=== PATIENT | female | born 1945 | race Caucasian/White ===

== ENCOUNTER 2018-09-06 05:50 | Day surgery (SDC) | payer OTHER ==
[2018-09-04 16:13] VITALS: BMI 24.7
[2018-09-06] VITALS (16 sets, daily range): BP systolic 96–142; BP diastolic 51–72; PULSE 74–80; RESP 13–21; Ht 144.8 cm; Wt 52.0 kg
[~2018-09-06] VITALS: Ht 144.8 cm; Wt 52.0 kg
[2018-09-06] MEDS ORDERED: CEFAZOLIN 1 GM/50 ML (PMX) 50 ML IVPB SCH (06:00)
[2018-09-06] MEDS ORDERED: SOD CHLORIDE 0.9% 1,000 ML IV SCH (06:00)
[2018-09-06] MEDS ORDERED: POLYMYXIN/BACITRACIN 1L IRRIG ONE (07:25)
--- NOTE | 2018-09-06 08:13 | PREAC ---
Date/Time of Note Date/Time of Note DATE: 09/06/18 TIME: 08:11 Anesthesia Eval and Record Evaluation Time Pre-Procedure Interview DATE: 09/06/18 TIME: 08:11 Age 73 Sex female NPO: 8 hrs Preoperative diagnosis hernia Planned procedure hernia repair Past Medical History Past Medical History: Includes Cardio: HTN, Dyslipidemia Surgery & Anesthesia Issues No known issue Meds Anticoagulation: No Beta Lisa within 24 hr: No Reason Beta Lisa not given: Pt. not on B-Lisa Current Medications Sodium Chloride 1,000 ml @ 75 mls/hr [id number] IV ; Start 09/06/18 at 06:00; Stop 09/06/18 at 16:00 Meds reviewed: Yes Allergies Coded Allergies: No Known Allergy (Unverified , 09/04/18) Allergies Reviewed: Yes Labs/Studies Labs Reviewed: Reviewed by anesthesiologist test: N/A Pre-procedure Exam Last vitals Vital Signs Date Temp Pulse Resp B/P (MAP) Pulse Ox O2 O2 Flow FiO2 Time Delivery Rate 09/06/18 97.9 16 142/72 98 Room Air 06:48 (95) Airway: Adequate mouth opening, Adequate thyromental dist Mallampati: Mallampati III Teeth: Normal Lung: Normal Heart: Normal ASA Physical Status ASA physical status: 2 Emergency: None Pre-operative Attestations Prior to commencing anesthesia and surgery, the patient was re-evaluated, there was verification of: *The patient's identity *The results of appropriate recent lab work and preoperative vital signs *The above evaluation not changing prior to induction *Anesthetic plan, risk benefits, alternative and complications discussed with patient/family; questions answered; patient/family understands, accepts and wishes to proceed. EDWIN THOMAS DO Sep 06, 2018 08:13
[2018-09-06] MEDS ORDERED: ETOMIDATE 20 MG INJ ONE (08:17)
[2018-09-06] MEDS ORDERED: LIDOCAINE 1% (MDV) 20 ML INJ ONE (08:17)
[2018-09-06] MEDS ORDERED: CEFAZOLIN 1 GM INJ ONE (08:29)
[2018-09-06] MEDS ORDERED: SEVOFLURANE 15 MIN ONE (08:30)
[2018-09-06] MEDS ORDERED: FENTAnyl 50 MCG/ML VIAL ONE (08:30)
[2018-09-06] MEDS ORDERED: ONDANSETRON 4 MG INJ IV PRN (08:30)
[2018-09-06] MEDS ORDERED: HYDROmorphONE 1 MG/5 ML IV SYRINGE IV PRN ×3 (08:30)
[2018-09-06] MEDS ORDERED: ONDANSETRON 4 MG INJ ONE (08:52)
[2018-09-06] MEDS ORDERED: ROPIVACAINE 0.2% 20 ML VIAL ONE (08:52)
[2018-09-06] MEDS ORDERED: hydrALAzine 20 MG INJ ONE (09:00)
[2018-09-06] MEDS ORDERED: EPHEDrine SULFATE 50 MG/5 ML SYG ONE (09:11)
--- NOTE | 2018-09-06 09:11 | OPR ---
Date/Time of Note Date/Time of Note DATE: 09/06/18 TIME: 09:06 Operative Report Procedure Date: Sep 06, 2018 Preoperative Diagnosis recurrent incarcerated right inguinal hernia Postoperative Diagnosis same Operation/Procedure Performed open right incarcerated recurrent inguinal hernia repair with mesh Surgeon see signature line Senior Lead Software Engineer none Anesthesia Type: general Estimated Blood Loss: 0 - 10 ml's Transfusion none Specimen none Grafts/Implants none Complications none Pt Condition Post Procedure: stable Indications This is a 73-year-old female with a recurrent incarcerated right inguinal hernia. She has pain and request surgical repair. Risks alternatives benefits and percent were discussed the patient. Potential complications including but not limited to bleeding infection recurrence of hernia mesh migration mesh infection pain and chronic pain were discussed the patient. Patient expressed understanding and consents to the operation. Procedure Description Patient is taken to the OR and prepped and draped in usual sterile fashion. Surgical time was performed. IV antibiotics were given. Oblique incision was made over the prior right inguinal hernia incision with a 10 blade. Dissection with cautery was carried onto the extremity fascia. Here already scar was encountered. At the medial aspect of the incision there was an incarcerated hernia. This fullness with the incarcerated hernia was carefully dissected and carefully lysed adhesions were performed until the base of the hernia and the fascial edges were identified. There was well incorporated old fascia that had migrated superiorly and laterally. The medial aspect was the only area that was identified with recurrent incarcerated inguinal hernia. Further dissection of the hernia contents was performed and manual reduction was possible. The hernia defect was identified and the fascial edges were freshened. The plug portion of the ultra pro hernia system mesh medium size was then secured in place with a running 0 Prolene from the pubic tubercle along the shelving is unlimited. Superiorly the plug was then affixed to what was the remnant of the prior old mesh and the internal oblique. This was fixed with interrupted 3-0 Vicryl superiorly. The defect was then closed primarily with a running 0 Prolene. The tissue was somewhat attenuated but the stitches held well. Good hemostasis was established. Tegan's fascia was reapproximated with interrupted 0 Vicryl. Skin was closed using a inzorb observable skin stapler. A tap block was provided by the anesthesiologist. Dry dressings were applied. Farnaz SÁNCHEZ Sep 06, 2018 09:11
--- NOTE | 2018-09-06 09:23 | PAC ---
Date/Time of Note Date/Time of Note DATE: 09/06/18 TIME: 09:23 Post-Anesthesia Notes Post-Anesthesia Note Last documented vital signs Vital Signs Date Temp Pulse Resp B/P (MAP) Pulse Ox O2 O2 Flow FiO2 Time Delivery Rate 09/06/18 98.1 80 16 125/65 98 Room Air 0923 Activity: WNL Respiratory function: WNL Cardiovascular function: WNL Mental status: Baseline Pain reasonably controlled: Yes Hydration appropriate: Yes Nausea/Vomiting absent: Yes EDWIN THOMAS DO Sep 06, 2018 09:23
[2018-09-06] MEDS ORDERED: HYDROCODONE/APAP (5/325) TAB PO ONE (09:30)
== END 2018-09-06 11:30 | disposition home or self-care (01) ==
LOC: SDS 05:50
PROVIDERS: ATTEND Surgery
DX: K40.31 Unilateral inguinal hernia, with obstruction, without gangrene, recurrent (principal); I10 Essential (primary) hypertension; E78.5 Hyperlipidemia, unspecified
CPT/HCPCS: 49521; C1781; J0360; J0690; J1170; J2405; J2795; J3010